=== PATIENT | male | born 1945 ===

== ENCOUNTER → 2018-11-10 | Outpatient (CLI) | payer OTHER ==
--- NOTE | 2018-11-11 10:37 | CT ---
EXAMINATION TYPE: CT chest wo/w con DATE OF EXAM: 11/10/2018 COMPARISON: None HISTORY: COPD CT DLP: 447.1 mGycm Automated exposure control for dose reduction was used. CONTRAST: CT scan of the chest is performed without and with IV Contrast, patient injected with 100 mL of Isovu e 300. FINDINGS: LUNGS: Moderate to severe emphysematous change and hyperinflation compatible with COPD. Pulmonary nod ule identified left upper lobe anteriorly measuring 8.7 mm. No evidence for infiltrate or pleural eff usion. Mild basilar scarring noted. MEDIASTINUM: There are no greater than 1 cm hilar or mediastinal lymph nodes. No pericardial effusi on is seen. Thoracic aorta is of normal caliber. The heart is not enlarged. UPPER ABDOMEN: No significant abnormality appreciated. OTHER: Partially imaged abdominal aortic aneurysm measuring 6.5 cm AP dimension. IMPRESSION: 1. Moderate to severe emphysematous change and COPD. 2. Pulmonary nodule left upper lobe recommend short-term follow-up in [address] evaluati on. 3. Abdominal aortic aneurysm.
== END | disposition home or self-care (01) ==
LOC: RADCTMAIN 15:38
PROVIDERS: ATTEND Physician Assistant
DX: J44.9 Chronic obstructive pulmonary disease, unspecified (principal); R91.1 Solitary pulmonary nodule; I71.4 Abdominal aortic aneurysm, without rupture
CPT/HCPCS: 82565; 84520; 71270; 36415; Q9967